=== PATIENT | female | born 1960 | race Hispanic/Latino ===

== ENCOUNTER 2024-12-01 23:16 | Emergency (ER) | payer SELFPAY ==
[2024-12-01] MEDS ORDERED: ONDANSETRON 4 MG/2 ML VIAL ONE (23:41)
--- NOTE | 2024-12-02 00:22 | ER ---
Nurse's Notes [facility] Name: Karma Granados Age: 64 yrs Sex: Female : 1960 Arrival Date: 12/01/2024 Time: 23:16 Bed 3 Private MD: Diagnosis: Unspecified adverse effect of drug or medicament Presentation: 12/01 23:21 Chief complaint: EMS states: low blood pressure. Patient has headache earlier and said cp4 her bp was high so she took an extra dose of her blood pressure medication. Coronavirus screen: Client denies travel out of the [place] in the last 14 days. At this time, the client does not indicate any symptoms associated with coronavirus-19. Ebola Screen: Patient negative for fever greater than or equal to 101.5 degrees Fahrenheit, and additional compatible Ebola Virus Disease symptoms Patient denies exposure to infectious person. Patient denies travel to an Ebola-affected area in the 21 days before illness onset. No symptoms or risks identified at this time. Initial Sepsis Screen: Does the patient meet any 2 criteria? No. Patient's initial sepsis screen is negative. Does the patient have a suspected source of infection? No. Patient's initial sepsis screen is negative. Risk Assessment: Do you want to hurt yourself or someone else? Patient reports no desire to harm self or others. Onset of symptoms was December 01, 2024. Care prior to arrival: Medication(s) given: Normal saline infusion, 500 mL, IV initiated. 20 GA, in the right antecubital area. 23:21 Method Of Arrival: EMS: [facility] cp4 23:21 Acuity: JUAN CARLOS 3 cp4 Triage Assessment: 23:23 General: Appears in no apparent distress. comfortable, Behavior is calm, cooperative, cp4 appropriate for age. Pain: Denies pain. EENT: No signs and/or symptoms were reported regarding the EENT system. Neuro: Level of Consciousness is awake, alert, obeys commands, Oriented to person, place, time, situation. Cardiovascular: No deficits noted. Respiratory: Airway is patent Respiratory effort is even, unlabored. GI: No signs and/or symptoms were reported involving the gastrointestinal system. : No signs and/or symptoms were reported regarding the genitourinary system. Derm: No signs and/or symptoms reported regarding the dermatologic system. Musculoskeletal: No signs and/or symptoms reported regarding the musculoskeletal system. Historical: - Allergies: 23:23 No Known Allergies; cp4 - Immunization history:: Adult Immunizations up to date. - Infectious Disease History:: Denies. - Social history:: Smoking status: Patient denies any tobacco usage or history of. Screenin:25 [facility] ED Fall Risk Assessment (Adult) History of falling in the last 3 months, cp4 including since admission No falls in past 3 months (0 pts) Confusion or Disorientation No (0 pts) Intoxicated or Sedated No (0 pts) Impaired Gait No (0 pts) Mobility Assist Device Used No (0 pt) Altered Elimination No (0 pt) Score/Fall Risk Level 0 - 2 = Low Risk Oriented to surroundings, Maintained a safe environment, Assessed \T\ reinforced patient's understanding of fall precautions, Hourly rounding (assess needs \T\ fall precautionary measures) done. Abuse screen: Denies threats or abuse. Denies injuries from another. Nutritional screening: No deficits noted. Tuberculosis screening: No symptoms or risk factors identified. Assessment: 23:26 Reassessment: No changes from previously documented assessment. cp4 23:55 Reassessment: Patient appears in no apparent distress at this time. No changes from vc1 previously documented assessment. Patient and/or family updated on plan of care and expected duration. Pain level reassessed. 12/02 00:49 Reassessment: Patient appears in no apparent distress at this time. Patient and/or vc1 family updated on plan of care and expected duration. Pain level reassessed. Patient is alert, oriented x 3, equal unlabored respirations, skin warm/dry/pink. Patient states feeling better. Patient states symptoms have improved. Vital Signs: 12/01 23:21 BP 132 / 70; Pulse 72; Resp 16; Temp 98.2; Pulse Ox 97% ; Weight 71 kg; Height 5 ft. 4 cp4 in. ; Pain 0/10; 23:55 BP 126 / 75; Pulse 66; Resp 16; Pulse Ox 98% ; vc1 23:21 Body Mass Index 26.87 (71.00 kg, 162.56 cm) cp4 23:21 Pain Scale: Adult cp4 ED Course: 23:18 Patient arrived in ED. jj6 23:20 Rosa Vanegas MD is Attending Physician. gb1 23:21 Potter, Jody is Primary Nurse. cp4 23:23 Triage completed. cp4 23:23 Arm band placed on right wrist. Patient placed in an exam room, on a stretcher. cp4 23:25 Bed in low position. Call light in reach. Side rails up X 1. cp4 23:25 No provider procedures requiring assistance completed. Maintain EMS IV. Dressing cp4 intact. Good blood return noted. Site clean \T\ dry. Gauge \T\ site: 20 RAC. Flushed with 10 mL NS. 12/02 00:49 Provided Education on: f/u with cardiology. vc1 00:49 IV discontinued, intact, bleeding controlled, No redness/swelling at site. Pressure vc1 dressing applied. Administered Medications: 12/01 23:43 Drug: NS 0.9% IV 1000 ml IV at 1000 ml once; to be given as a bolus over 60 minutes cp4 Route: IV; Rate: 1000 ml; Site: right antecubital; 12/02 00:48 Follow up: IV Status: Completed infusion; IV Intake: 1000ml vc1 12/01 23:43 Drug: Ondansetron IVP 4 mg IVP once; over 2 minutes Route: IVP; Site: right antecubital;cp4 12/02 00:47 Follow up: Response: No adverse reaction; Marked relief of symptoms vc1 Medication: 12/01 23:25 VIS not applicable for this client. cp4 Intake: 12/02 00:48 IV: 1000ml; Total: 1000ml. vc1 Outcome: 00:22 Discharge ordered by . gb1 00:48 Discharged to home via wheelchair, with family, vc1 00:48 Condition: stable 00:48 Discharge instructions given to family, Instructed on discharge instructions, follow up and referral plans. Demonstrated understanding of instructions, follow-up care, 00:49 Patient left the ED. vc1 Signatures: Judith Loza Vanessa, RN RN vc1 Rosa Vanegas MD MD gb1 Potter, Christina cp4
--- NOTE | 2024-12-02 00:22 | EDPHYS ---
Physician Documentation [facility] Name: Karma Granados Age: 64 yrs Sex: Female : 1960 Arrival Date: 12/01/2024 Time: 23:16 Bed 3 Private MD: ED Physician Rosa Vanegas HPI: 12/02 00:17 This 64 yrs old Female presents to ER via EMS with complaints of Low Blood gb1 Pressure. 00:17 64-year-old female with lying in bed turned positive and all of a sudden got headache. gb1 She has history of hypertension so she took her prescribed isosorbide 2 tablets. She then got nervous about taking the medicine and her headache was about a 5 out of 10 and she came in to be evaluated. Patient denies any chest pain or shortness of breath. She denies any fever chills or cough. She does not have a doctor here her care is in [place].. Historical: - Allergies: 12/01 23:23 No Known Allergies; cp4 - Immunization history:: Adult Immunizations up to date. - Infectious Disease History:: Denies. - Social history:: Smoking status: Patient denies any tobacco usage or history of. Exam: 12/02 00:17 Constitutional: This is a well developed, well nourished patient who is awake, alert, gb1 patient appears pale. Head/Face: Normocephalic, atraumatic. Eyes: Pupils equal round and reactive to light, extra-ocular motions intact. Lids and lashes normal. Conjunctiva and sclera are non-icteric and not injected. Cornea within normal limits. Periorbital areas with no swelling, redness, or edema. ENT: Nares patent. No nasal discharge, no septal abnormalities noted. Tympanic membranes are normal and external auditory canals are clear. Oropharynx with no redness, swelling, or masses, exudates, or evidence of obstruction, uvula midline. Mucous membranes moist. Neck: Trachea midline, no thyromegaly or masses palpated, and no cervical lymphadenopathy. Supple, full range of motion without nuchal rigidity, or vertebral point tenderness. No Meningismus. Chest/axilla: Normal chest wall appearance and motion. Nontender with no deformity. No lesions are appreciated. Cardiovascular: Regular rate and rhythm with a normal S1 and S2. No gallops, murmurs, or rubs. Normal PMI, no JVD. No pulse deficits. Respiratory: Lungs have equal breath sounds bilaterally, clear to auscultation and percussion. No rales, rhonchi or wheezes noted. No increased work of breathing, no retractions or nasal flaring. Abdomen/GI: Soft, non-tender, with normal bowel sounds. No distension or tympany. No guarding or rebound. No evidence of tenderness throughout. Back: No spinal tenderness. No costovertebral tenderness. Full range of motion. Skin: Warm, dry with normal turgor. Normal color with no rashes, no lesions, and no evidence of cellulitis. MS/ Extremity: Pulses equal, no cyanosis. Neurovascular intact. Full, normal range of motion. Neuro: Awake and alert, GCS 15, oriented to person, place, time, and situation. Cranial nerves II-XII grossly intact. Motor strength 5/5 in all extremities. Sensory grossly intact. Cerebellar exam normal. Normal gait. Vital Signs: 12/01 23:21 BP 132 / 70; Pulse 72; Resp 16; Temp 98.2; Pulse Ox 97% ; Weight 71 kg; Height 5 ft. 4 cp4 in. ; Pain 0/10; 23:55 BP 126 / 75; Pulse 66; Resp 16; Pulse Ox 98% ; vc1 23:21 Body Mass Index 26.87 (71.00 kg, 162.56 cm) cp4 23:21 Pain Scale: Adult cp4 MDM: 23:20 Medical Screening Exam initiated gb12/02 00:17 ED course: 64-year-old female with history of hypertension on isosorbide and gb1 telmisartan is here for initially a headache and then concerns for low blood pressure. She is brought by her family after double dosing on her isosorbide. Her blood pressure is 126/75 currently and she is nauseated, no vomiting. I instructed the patient and the family about doubling up on the isosorbide and advised him to skip her morning dose. Patient's physician of record is in [place] and she plans to follow-up here with roll winder for medication reconciliation. I have hydrated her with IV fluids and given Zofran IV and she is clinically improved I will discharge her home with return precautions. She denies any chest pain or shortness of breath here during this established emergency department visit. Her headache is subsided and I recommended that she hydrate as well.. Administered Medications: 12/01 23:43 Drug: NS 0.9% IV 1000 ml IV at 1000 ml once; to be given as a bolus over 60 minutes cp4 Route: IV; Rate: 1000 ml; Site: right antecubital; 12/02 00:48 Follow up: IV Status: Completed infusion; IV Intake: 1000ml vc1 12/01 23:43 Drug: Ondansetron IVP 4 mg IVP once; over 2 minutes Route: IVP; Site: right antecubital;cp4 12/02 00:47 Follow up: Response: No adverse reaction; Marked relief of symptoms vc1 Disposition Summary: 12/02/24 00:22 Discharge Ordered Notes: Location: Home gb1 Problem: new gb1 Symptoms: have improved gb1 Condition: Stable gb1 Diagnosis - Unspecified adverse effect of drug or medicament gb1 Followup: gb1 - With: Private Physician - When: - Reason: Recheck today's complaints Discharge Instructions: - Discharge Summary Sheet gb1 - Hypertension, Adult, [id number] gb1 Forms: - Medication Reconciliation Form gb1 - Antibiotic Education gb1 - Prescription Opioid Use gb1 - Patient Portal Instructions gb1 - Leadership Thank You Letter gb1 Signatures: Rosa Vanegas MD MD gb1 Jody Barnes cp4 Danya Huizar RN vc1
[2024-12-02 00:58] VITALS: TEMP 98.2
[2024-12-02 01:01] VITALS: BP 126/75; O2SAT 98
--- NOTE | 2024-12-02 12:34 | EKG ---
Test Date: 2024-12-01 Test Time: 23:19:23 Entertainer Or Variety Artist: NIRAV MEASUREMENT RESULTS: Intervals: Rate: 72 SC: 184 QRSD: 88 QT: 412 QTc: 451 [place]: P: 48 SC: 184 QRS: 7 T: 22 INTERPRETIVE STATEMENTS: * Pediatric ECG analysis * Sinus bradycardia with 1st degree AV block Left axis deviation No previous ECG available for comparison Electronically Signed On 12-02-24 12:32:35 CDT by Lavon Cordon
== END 2024-12-02 00:49 | disposition home or self-care (01) ==
LOC: ER 23:16
DX: R51.9 Headache, unspecified (principal); T50.995A Adverse effect of other drugs, medicaments and biological substances, initial encounter
CPT/HCPCS: 93005; J2405